=== PATIENT | female | born 1970 | race African-American/Black ===

== ENCOUNTER 2017-09-26 13:17 | Emergency (ER) | payer MEDICAID ==
[~2017-09-26] VITALS: Ht 165.1 cm; Wt 70.8 kg
--- NOTE | 2017-09-26 13:21 | NUR ---
RECEIVED PATIENT BBRA FROM HOME C/O OF SI , DENIES HI , PLAN IS TO DRINK ETOH , AOX2 DROWSY , AROUSES EASYILY , , NOT IN ACUTE DISTRESS , RESPIRATIONS EVEN AND UNLABORED ON RA SPO2 0F 100% , VSS , WILL CONTINUE TO MONITOR
--- NOTE | 2017-09-26 13:25 | NUR ---
[facility] CONTACT INFO FOR PT IS [email or web address]. CALL [phone] OR [phone]
--- NOTE | 2017-09-26 13:49 | NUR ---
RECEIVED CALL FROM ERICA, FRIEND, SHE IS WORRIED ABOUT PT AND SAID IF WE NEED ANYTHING TO CALL HER, HER NUMBER IS ABOVE IN NOTES.
--- NOTE | 2017-09-26 13:52 | NUR ---
URINE SPECIMEN OBTAINED , LABALED AND SENT TO LAB.
--- NOTE | 2017-09-26 14:30 | NUR ---
K OF 3.2 DISCUSSED WITH PSamantha NO NEW ORDERS RECEIVED
[2017-09-26 14:36] LABS: CALCIUM, SERUM 8.9 mg/dL (8.5-10.1); CREATININE 0.5 mg/dL (0.6-1.3); POTASSIUM 3.2 mmol/L (3.5-5.1)
[2017-09-26 14:39] LABS: APPEARANCE,URINE Clear (CLEAR); BILIRUBIN,URINE Negative (NEGATIVE); BLOOD, URINE Negative Ery/uL (NEGATIVE); COLOR,URINE Yellow (YELLOW); KETONES,URINE Negative (NEGATIVE); LEUKOCYTE ESTERASE ,URINE Negative (NEGATIVE); NITRITE, URINE Negative (NEGATIVE); PH,URINE 5.5 (5.0-8.0); PROTEIN,URINE Negative (NEGATIVE); UGLUCOSE Negative (NEGATIVE); UROBILINOGEN,URINE 0.2 EU/dL (0.2)
[2017-09-26 14:47] LABS: BASOPHILS # (AUTO) 0.1 /CMM (0.0-0.2); BASOPHILS % (AUTO) 2.6 % (0.0-2.0); HEMATOCRIT 34 % (33-45); HEMOGLOBIN 11.1 g/dL (11.5-14.8); LYMPHOCYTES # (AUTO) 2.1 /CMM (0.8-4.8); LYMPHOCYTES % (AUTO) 56.6 % (20.0-44.0); MEAN CORPUSCULAR HEMOGLOBIN 28 PG (26.0-33.0); MEAN CORPUSCULAR HGB CONC 33 g/dl (31.0-36.0); MEAN CORPUSCULAR VOLUME 85 fL (82-100); MONOCYTES # (AUTO) 0.3 /CMM (0.1-1.30); MONOCYTES % (AUTO) 7.6 % (2.0-12.0); NEUTROPHILS # (AUTO) 1.2 /CMM (1.8-8.9); NEUTROPHILS % (AUTO) 32.2 % (43.0-81.0); PLATELET COUNT (AUTO) 307 /CMM (150-450); RDW COEFFICIENT OF VARIATION 15.3 (11.5-15.0); RED BLOOD CELL COUNT(AUTO) 3.98 MIL/uL (4.0-5.2); WHITE BLOOD COUNT (AUTO) 3.6 K/uL (4.3-11.0)
[2017-09-26 14:54] LABS: ALBUMIN 4.1 g/dL (3.4-5.0); BILIRUBIN,DIRECT 0.3 mg/dL (0.0-0.2); BILIRUBIN,TOTAL 1.5 mg/dL (0.2-1.0); SALICYLATE 0.9 mg/dL (2.8-20.0); TOTAL PROTEIN, SERUM 7.9 g/dL (6.4-8.2)
--- NOTE | 2017-09-26 18:30 | NUR ---
Patient is resting comfortably in bed with eyes closed. Easily aroused. VSS
--- NOTE | 2017-09-26 19:00 | NUR ---
RECEIVED PATIENT FROM [facility]. PATIENT IS RESTING IN ER BED, NO DISTRESS NOTED, SKIN WARM AND DRY, RESP EVEN AND UNLABORED. PATIENT IS RESTING, WATCHING TV. NO MEDICAL COMPLAINTS AT THIS TIME, WILL CONTINUE TO MONITOR
--- NOTE | 2017-09-26 19:02 | NUR ---
RECEIVED CALL FROM ERICA, FRIEND, CHECKING UP ON PT.
--- NOTE | 2017-09-26 20:20 | NUR ---
CALLED [facility] FOR PSYCH EVAL, ETA WITHIN THE HOUR
--- NOTE | 2017-09-26 21:16 | NUR ---
PATIENT AMBULATED TO ER RESTROOM WITH STEADY GAIT. GAVE PATIENT WATER.
--- NOTE | 2017-09-26 22:00 | NUR ---
PATIENT IS RESTING IN ER BED, NO DISTRESS NOTED, SKIN WARM AND DRY. WILL CONTINUE TO MONITOR.
--- NOTE | 2017-09-26 23:37 | NUR ---
RECEIVED CALL FROM BRENDAN AT [facility], . HE INFORMED ME ONCE PT'S ALCOHOL LEVEL IS BELOW 150 THEY CAN ACCEPT PT.
--- NOTE | 2017-09-27 | NUR ---
PATIENT IS ASLEEP IN ER BED, NO DISTRESS NOTED. SKIN WARM AND DRY, RESP EVEN AND UNLABORED. WILL CONTINUE TO MONITOR
--- NOTE | 2017-09-27 02:00 | NUR ---
PATIENT RESTING IN ER BED, NO DISTRESS NOTED, WILL CONTINUE TO MONITOR
--- NOTE | 2017-09-27 07:48 | NUR ---
LAB AT BEDSIDE FOR BLOOD DRAW
--- NOTE | 2017-09-27 15:35 | NUR ---
[facility] Called for Evaluation.
--- NOTE | 2017-09-27 16:37 | NUR ---
Jo Ann rizo [facility] called to state that pt is accepted number for report is [phone]
--- NOTE | 2017-09-27 17:09 | NUR ---
Called Mesfin at [facility] behavioral health unit
--- NOTE | 2017-09-27 17:14 | NUR ---
MICHAEL TRONCOSO [id number] TRIP #[id number]
--- NOTE | 2017-09-27 17:45 | NUR ---
Report given to Rubina NARAYAN for transport to [facility]
--- NOTE | 2017-09-27 17:51 | NUR ---
Report given to Mesfin at [facility] for Continuity of care
[2017-09-27 17:54] VITALS: BP 132/51
== END 2017-09-27 17:49 ==
LOC: ER 13:19
DX: R45.851 Suicidal ideations (principal); I10 Essential (primary) hypertension; E11.9 Type 2 diabetes mellitus without complications; F10.20 Alcohol dependence, uncomplicated
CPT/HCPCS: 36415; 80048-TC; 80076-TC; 80305; 81000-TC; 84703-TC; 85025-TC; A4606; G0480; Z7610

== ENCOUNTER 2018-11-16 17:45 | Emergency (ER) | payer MEDICAID ==
[~2018-11-16] VITALS: Ht 165.1 cm; Wt 90.7 kg
--- NOTE | 2018-11-16 18:22 | NUR ---
FRIENDS CONTACT INFO FOR [facility]: DENNIS- [phone]
[2018-11-16] MEDS ORDERED: IV NS 0.9% 1,000 ML BAG IV ONE (18:30)
[2018-11-16] MEDS ORDERED: KETOROLAC TROMETHAMINE INJ 30 MG/ML VIAL IM ONE (18:30)
[2018-11-16] MEDS ORDERED: ONDANSETRON HCL/PF 4 MG/2 ML VIAL IV ONE (18:30)
[2018-11-16] MEDS ORDERED: LORAZEPAM INJ 2 MG/ML VIAL IV ONE (18:30)
[2018-11-16 18:31] LABS: BASOPHILS % (AUTO) 0.9 % (0.0-2.0); HEMATOCRIT 34 % (33-45); HEMOGLOBIN 11.1 g/dL (11.5-14.8); LYMPHOCYTES # (AUTO) 0.8 /CMM (0.8-4.8); LYMPHOCYTES % (AUTO) 25.9 % (20.0-44.0); MEAN CORPUSCULAR HGB CONC 33 g/dl (31.0-36.0); MEAN CORPUSCULAR VOLUME 78 fL (82-100); MONOCYTES # (AUTO) 0.3 /CMM (0.1-1.30); MONOCYTES % (AUTO) 8.5 % (2.0-12.0); NEUTROPHILS % (AUTO) 63.7 % (43.0-81.0); PLATELET COUNT (AUTO) 187 /CMM (150-450); WHITE BLOOD COUNT (AUTO) 3.1 K/uL (4.3-11.0)
--- NOTE | 2018-11-16 18:37 | NUR ---
pt was drinking today n/v iv sterted rt wrist 20g ivp labs sent with ua friend at bedsideAWAITING EVALUATION BY ER PROVIDER.
[2018-11-16] MEDS ORDERED: LORAZEPAM INJ 2 MG/ML VIAL ONE (18:41)
[2018-11-16] MEDS ORDERED: ONDANSETRON HCL/PF 4 MG/2 ML VIAL ONE (18:42)
[2018-11-16] MEDS ORDERED: KETOROLAC TROMETHAMINE INJ 30 MG/ML VIAL ONE (18:42)
[2018-11-16 18:48] LABS: ALANINE AMINOTRANSFERASE 89 U/L (12-78); ALBUMIN 3.2 g/dL (3.4-5.0); ALKALINE PHOSPHATASE 153 U/L (46-116); ASPARTATE AMINOTRANSFERASE 443 U/L (15-37); BILIRUBIN,DIRECT 0.6 mg/dL (0.0-0.2); BILIRUBIN,TOTAL 1.5 mg/dL (0.2-1.0); CALCIUM, SERUM 6.7 mg/dL (8.5-10.1); CARBON DIOXIDE 32 mmol/L (21-32); CHLORIDE 94 mmol/L (98-107); CREATININE 0.8 mg/dL (0.6-1.3); GLUCOSE 114 mg/dL (74-106); SODIUM SERUM 140 mmol/L (136-145); TOTAL PROTEIN, SERUM 6.9 g/dL (6.4-8.2); UREA NITROGEN, BLOOD 4 mg/dL (7-18)
[2018-11-16 18:50] LABS: POTASSIUM 2.4 mmol/L (3.5-5.1)
--- NOTE | 2018-11-16 18:50 | NUR ---
meds given per md order vss watching tv
[2018-11-16 18:51] LABS: ALCOHOL, BLOOD < 3 mg/dL (0-0)
--- NOTE | 2018-11-16 18:59 | NUR ---
k is 2.4 notified md
[2018-11-16] MEDS ORDERED: POTASSIUM CHLORIDE 20 MEQ TAB.PRT.SR PO ONE ×2 (19:00→19:09)
--- NOTE | 2018-11-16 19:12 | NUR ---
pt given kdur 40 po
--- NOTE | 2018-11-16 19:20 | NUR ---
Patient is resting comfortably in bed WATCHING TELEVISION. Easily aroused. VSS. WILL CONTINUE TO MONITOR.
[2018-11-16 19:21] VITALS: BP 118/66
[2018-11-16] MEDS ORDERED: POTASSIUM CL. PREMIX PERIPHER. 50 ML IV SCH (19:30)
[2018-11-16] MEDS ORDERED: POTASSIUM CL. PREMIX PERIPHER. 50 ML ONE (20:32)
--- NOTE | 2018-11-16 21:38 | NUR ---
IV removed. Catheter intact and site benign. Pressure and 4x4 applied to site. No bleeding noted.Patient discharged to home in stable condition. Written and verbal after care instructions given. Patient verbalizes understanding of instruction. PT AMBULATORY WITH STEADY GAIT.
== END 2018-11-16 21:39 | disposition home or self-care (01) ==
LOC: ER 17:45
DX: F10.239 Alcohol dependence with withdrawal, unspecified (principal); E87.6 Hypokalemia; I10 Essential (primary) hypertension; E11.9 Type 2 diabetes mellitus without complications; Y90.0 Blood alcohol level of less than 20 mg/100 ml
CPT/HCPCS: 36415; 80048; 80076; 80305; 80307; 84703; 85025; 96365; 96372; 96375; 99283; J1885; J2060; J2405; J3480; J7030; J7040; G0480

== ENCOUNTER 2019-10-10 08:03 | Emergency (ER) | payer MEDICAID ==
[~2019-10-10] VITALS: Ht 165.1 cm; Wt 92.5 kg
--- NOTE | 2019-10-10 08:08 | NUR ---
BIB RA 839 FROM HOME,BILATERAL LEG PAIN AND NUMBNESS X 2 WEEKS, TO ER BED 10, HOOKED TO MONITOR, CHANGED TO HOSP GOWN, WARM BLANKET PROVIDED, PATIENT AAO x 4, BREATHING EVEN AND UNLABORED. DR BREWER AT BEDSIDE
--- NOTE | 2019-10-10 08:22 | NUR ---
DR BREWER AT BEDSIDE FOR EVAL.
[2019-10-10] MEDS: Thiamine 100 MG in IV D5W 50 ML IV SCH ×2 (09:18→09:25)
[2019-10-10 09:35] LABS: BASOPHILS # (AUTO) 0.1 /CMM (0.0-0.2); BASOPHILS % (AUTO) 0.9 % (0.0-2.0); EOSINOPHILS % (AUTO) 0.6 % (0.0-6.0); HEMATOCRIT 28 % (33-45); HEMOGLOBIN 8.8 g/dL (11.5-14.8); LYMPHOCYTES # (AUTO) 1.6 /CMM (0.8-4.8); LYMPHOCYTES % (AUTO) 10.9 % (20.0-44.0); MEAN CORPUSCULAR HGB CONC 32 g/dl (31.0-36.0); MEAN CORPUSCULAR VOLUME 84 fL (82-100); MONOCYTES # (AUTO) 0.8 /CMM (0.1-1.30); MONOCYTES % (AUTO) 5.4 % (2.0-12.0); NEUTROPHILS # (AUTO) 12.3 /CMM (1.8-8.9); NEUTROPHILS % (AUTO) 82.2 % (43.0-81.0); PLATELET COUNT (AUTO) 222 /CMM (150-450); RED BLOOD CELL COUNT(AUTO) 3.31 MIL/uL (4.0-5.2)
[2019-10-10 09:40] LABS: CALCIUM, SERUM 8.7 mg/dL (8.5-10.1); CREATININE 2.8 mg/dL (0.6-1.3); POTASSIUM 3.3 mmol/L (3.5-5.1)
[2019-10-10 09:47] LABS: ALBUMIN 2.5 g/dL (3.4-5.0); BILIRUBIN,DIRECT 2.1 mg/dL (0.0-0.2); BILIRUBIN,TOTAL 2.8 mg/dL (0.2-1.0)
[2019-10-10] MEDS ORDERED: POTASSIUM CHLORIDE 20 MEQ TAB.PRT.SR PO ONE ×2 (09:57→10:00)
[2019-10-10] MEDS ORDERED: IV NS 0.9% 1,000 ML BAG IV ONE (10:00)
[2019-10-10 10:25] LABS: CREATINE KINASE, TOTAL 24 U/L (26-192)
[2019-10-10 10:31] LABS: MAGNESIUM 1.4 mg/dL (1.8-2.4)
[2019-10-10 10:32] LABS: ALCOHOL, BLOOD < 3 mg/dL (0-0)
[2019-10-10 11:03] LABS: BILIRUBIN,URINE SMALL (NEGATIVE); BLOOD, URINE Trace-intact Ery/uL (NEGATIVE); KETONES,URINE Negative (NEGATIVE); LEUKOCYTE ESTERASE ,URINE Negative (NEGATIVE); NITRITE, URINE Negative (NEGATIVE); PROTEIN,URINE 30 mg/dl (NEGATIVE); UGLUCOSE Negative (NEGATIVE)
[2019-10-10 11:10] LABS: APPEARANCE,URINE SLIGHTLY CLOUDY (CLEAR); COLOR,URINE DARK YELLOW (YELLOW)
[2019-10-10 11:22] LABS: BACTERIA,URINE Few /HPF (None Seen); SQUAMOUS EPITHELIAL CELL,UR Moderate /HPF (None Seen)
--- NOTE | 2019-10-10 11:32 | NUR ---
IV removed. Catheter intact and site benign. Pressure and 4x4 applied to site. No bleeding noted.Patient discharged to home in stable condition. Written and verbal after care instructions given. Patient verbalizes understanding of instruction.
--- NOTE | 2019-10-10 11:34 | NUR ---
ASSISTED TO WAITING ROOM VIA WHEELCHAIR TO WAIT FOR HER LICENSED NURSE PRACTITIONER.
[2019-10-10 11:46] VITALS: BP 124/66
== END 2019-10-10 11:34 | disposition home or self-care (01) ==
LOC: ER 08:08
DX: E80.6 Other disorders of bilirubin metabolism (principal); E87.6 Hypokalemia; N28.9 Disorder of kidney and ureter, unspecified; E86.0 Dehydration; D64.9 Anemia, unspecified; K74.60 Unspecified cirrhosis of liver; E83.42 Hypomagnesemia; I10 Essential (primary) hypertension; E11.9 Type 2 diabetes mellitus without complications; Z60.2 Problems related to living alone
CPT/HCPCS: 36415; 72131; 76700; 80048; 80076; 80307; 81001; 82550; 83735; 85025; 96361; 96365; 99285; J3411; J7030; J7060; 81000-TC; G0480

== ENCOUNTER 2023-01-25 11:08 | Emergency (ER) | payer MEDICAID, OTHER ==
[~2023-01-25] VITALS: Ht 165.1 cm; Wt 79.4 kg
[2023-01-25 11:55] VITALS: TEMP 98.6
[2023-01-25] MEDS ORDERED: IV NS 0.9% 1,000 ML BAG IV ONE (12:30)
[2023-01-25] MEDS ORDERED: ONDANSETRON 4 MG TAB.RAPDIS ONE (12:49)
[2023-01-25 12:54] LABS: BASOPHILS # (AUTO) 0.1 K/uL (0.0-0.2); BASOPHILS % (AUTO) 1.4 % (0.0-2.0); HEMATOCRIT 35 % (33-45); LYMPHOCYTES # (AUTO) 0.8 K/uL (0.8-4.8); LYMPHOCYTES % (AUTO) 10.5 % (20.0-44.0); MEAN CORPUSCULAR HEMOGLOBIN 26 PG (26.0-33.0); MEAN CORPUSCULAR HGB CONC 32 g/dl (31.0-36.0); MEAN CORPUSCULAR VOLUME 83 fL (82-100); MONOCYTES # (AUTO) 0.5 K/uL (0.1-1.30); MONOCYTES % (AUTO) 6.8 % (2.0-12.0); NEUTROPHILS # (AUTO) 6.3 K/uL (1.8-8.9); NEUTROPHILS % (AUTO) 81.3 % (43.0-81.0); PLATELET COUNT (AUTO) 161 K/uL (150-450); RED BLOOD CELL COUNT(AUTO) 4.19 MIL/uL (4.0-5.2); RED CELL DISTRIBUTION WIDTH 23.3 % (11.5-15.0); WHITE BLOOD COUNT (AUTO) 7.8 K/uL (4.3-11.0)
[2023-01-25] MEDS ORDERED: ONDANSETRON HCL 4 MG/5 ML SOLUTION PO ONE (13:00)
[2023-01-25 13:14] LABS: ALBUMIN 4.3 g/dL (3.4-5.0); BILIRUBIN,TOTAL 3.7 mg/dL (0.2-1.0); CALCIUM, SERUM 9.7 mg/dL (8.5-10.1); CREATININE 1.2 mg/dL (0.6-1.3); TOTAL PROTEIN, SERUM 8.7 g/dL (6.4-8.2)
[2023-01-25 13:18] LABS: BILIRUBIN,DIRECT 1.6 mg/dL (0.0-0.2); POTASSIUM 3.2 mmol/L (3.5-5.1)
[2023-01-25] MEDS ORDERED: ONDA4TAB5 PO (14:34)
[2023-01-25 15:37] VITALS: BP 130/78; O2SAT 98
== END 2023-01-25 14:45 | disposition home or self-care (01) ==
LOC: ER 11:08
DX: E86.0 Dehydration (principal); E80.6 Other disorders of bilirubin metabolism; D64.9 Anemia, unspecified; E87.6 Hypokalemia; I10 Essential (primary) hypertension; E11.9 Type 2 diabetes mellitus without complications; Z79.899 Other long term (current) drug therapy; Z60.2 Problems related to living alone
CPT/HCPCS: 99283; 85025; 80048; 83690; 80076; 36415; Q0162